=== PATIENT | male | born 1965 | race African-American/Black ===

== ENCOUNTER 2024-02-13 17:27 | Inpatient (IN) | payer OTHER ==
[~2024-02-13] VITALS: Ht 177.8 cm; Wt 67.0 kg
[2024-02-13 17:30] VITALS: O2SAT 99
[2024-02-13] MEDS: LORAZEPAM 2MG/ML INJ IV ONE (18:36)
[2024-02-13 20:46] LABS: CARBON DIOXIDE 24 mEq/L (21-32); CHLORIDE 109 mEq/L (98-107); DIFFERENTIAL COMMENT 1; POTASSIUM 4.7 mEq/L (3.5-5.1); SODIUM 144 mEq/L (136-145)
[2024-02-13 20:47] LABS: CALCIUM 9.2 mg/dL (8.7-10.4)
[2024-02-13 20:52] LABS: CREATININE 0.9 mg/dL (0.6-1.3); GLUCOSE 97 mg/dL (70-105); UREA NITROGEN BLOOD 12 mg/dL (9-23)
[2024-02-13 20:54] LABS: ETHANOL BLOOD < 10 mg/dL (<10)
[2024-02-13 21:48] LABS: BASOPHILS % 0.5 % (0.0-2.0); HEMATOCRIT. 34.5 % (42.0-52.0); HEMOGLOBIN. 11.7 g/dL (14.0-18.0); LYMPHOCYTES % 5.5 % (20.0-50.0); MEAN CORPUSCULAR HEMOGLOBIN 27.8 pg (28.0-32.0); MEAN CORPUSCULAR HGB CONC 33.8 g/dL (31.0-37.0); MEAN CORPUSCULAR VOLUME 82.2 fL (80.0-94.0); MEAN PLATELET VOLUME 8.9 fl (7.4-10.4); MONOCYTES % 7.4 % (2.0-8.0); NEUTROPHILS % 86.6 % (40.0-76.0); PLATELET 134 x1000/uL (130-400); RED CELL DISTRIBUTION WIDTH 17.1 % (11.6-14.6)
[2024-02-13 22:08] LABS: PLATELET ESTIMATE NORMAL
[2024-02-14 04:00] VITALS: BP 162/91; PULSE 74; RESP 18; TEMP 98.3
[2024-02-14 05:00] LABS: CLARITY URINE CLEAR (CLEAR); COLOR URINE YELLOW (YELLOW); GLUCOSE URINE NEGATIVE (NEGATIVE); KETONES URINE 1+ (NEGATIVE); LEUKOCYTE ESTERASE URINE NEGATIVE (NEGATIVE); NITRITE URINE NEGATIVE (NEGATIVE); OCCULT BLOOD URINE 1+ (NEGATIVE); PH URINE 6.5 (4.5-8.0); PROTEIN URINE 3+ (NEGATIVE); SPECIFIC GRAVITY URINE 1.012 (1.005-1.030)
[2024-02-14 05:08] LABS: *AMPHETAMINES SCREEN URINE NEGATIVE (NEGATIVE); *BARBITURATES SCREEN URINE NEGATIVE (NEGATIVE); *BENZODIAZEPINES SCREEN URINE NEGATIVE (NEGATIVE); *COCAINE SCREEN URINE NEGATIVE (NEGATIVE); CANNABINOID URINE SCREEN NEGATIVE (NEGATIVE); ECSTASY MDMA SCREEN URINE NEGATIVE (NEGATIVE); METHADONE URINE SCREEN NEGATIVE (NEGATIVE); OPIATES URINE SCREEN NEGATIVE (NEGATIVE); PHENCYCLIDINE URINE SCREEN NEGATIVE (NEGATIVE)
[2024-02-14] MEDS: CLONIDINE 0.1MG TABLET PO PRN (06:26)
[2024-02-14 07:56] LABS: RBC URINE 0-2 /hpf (0-2); WBC URINE 0-2 /hpf (0-2)
[2024-02-14 07:57] LABS: BACTERIA URINE NONE SEEN; SQUAMOUS EPITHELIAL CELL URINE NONE SEEN /lpf (RARE/1+)
[2024-02-14 09:00] VITALS: BP 152/83; PULSE 63; RESP 17; TEMP 98.7
[2024-02-14] MEDS ORDERED: IPRATROPIUM/ALBUTEROL 0.5-3(2.5)MG/3ML NEB HHN PRN (09:45)
[2024-02-14] MEDS ORDERED: DIPHENHYDRAMINE 50MG/ML VIAL IV PRN (09:45)
[2024-02-14] MEDS ORDERED: ACETAMINOPHEN 325MG TABLET PO PRN (09:45)
[2024-02-14] MEDS ORDERED: LORAZEPAM 2MG/ML INJ IV PRN (09:45)
[2024-02-14] MEDS ORDERED: ONDANSETRON HCL 4MG/2ML INJ IV PRN (09:45)
[2024-02-14] MEDS ORDERED: LEVETIRACETAM 500MG PREMIX 100 ML IV SCH (11:00)
== END 2024-02-14 11:15 | disposition left against medical advice (07) | DRG 101 ==
LOC: ER 17:27 → 5WST 02-14 01:54 → EDBEDREQDT 02-14 01:59 → EDBEDREQTM 02-14 01:59 → EDBEDREQ 02-14 01:59 → 8WST 02-14 09:17
PROVIDERS: ADMIT Internal Medicine; ATTEND Internal Medicine
DX: G40.409 Other generalized epilepsy and epileptic syndromes, not intractable, without status epilepticus (principal); I10 Essential (primary) hypertension; Z53.29 Procedure and treatment not carried out because of patient's decision for other reasons; Z88.0 Allergy status to penicillin; Z79.899 Other long term (current) drug therapy
CPT/HCPCS: 36415; 71045; 80048; 80305; 80320; 81003; 85025; 99291; J1953; J2060; G0480